=== PATIENT | female | born 1990 | race Two or more races ===

== ENCOUNTER 2020-09-28 18:26 | Emergency (ER) | payer MEDICAID ==
[~2020-09-28] VITALS: Ht 170.2 cm; Wt 71.0 kg
[2020-09-28] MEDS ORDERED: KETOROLAC 60MG/2ML VIAL IM ONE (18:45)
[2020-09-28] MEDS ORDERED: IBUP-2029 MT (21:07)
[2020-09-28 21:10] VITALS: BP 137/91
[2020-10-11] MEDS ORDERED: TAMS-11 MT ×2 (18:04)
[2020-10-11] MEDS ORDERED: ONDA4TAB5 MT ×2 (18:04)
== END 2020-09-28 21:10 | disposition home or self-care (01) ==
LOC: ER 18:26
DX: S60.221A Contusion of right hand, initial encounter (principal); X58.XXXA Exposure to other specified factors, initial encounter; Y93.89 Activity, other specified; Y92.89 Other specified places as the place of occurrence of the external cause; Y99.8 Other external cause status
CPT/HCPCS: 73130; 81025; 96372; 99283; J1885

== ENCOUNTER 2024-12-28 12:28 | Emergency (ER) | payer MEDICAID, OTHER ==
[~2024-12-28] VITALS: Ht 167.6 cm; Wt 83.0 kg
[~2024-12-28 12:28] MED LIST: IBUP-1455 MT
[2024-12-28 12:39] VITALS: TEMP 37.2; O2SAT 100
[2024-12-28] MEDS: IBUPROFEN 800MG TABLET PO ONE (14:41)
[2024-12-28] MEDS ORDERED: IBUP-2030 MT (14:57)
[2024-12-28] MEDS ORDERED: CYCL5TAB3 MT (14:57)
[2024-12-28 15:18] VITALS: BP 113/68; PULSE 61; RESP 12; O2SAT 98
== END 2024-12-28 15:02 | disposition home or self-care (01) ==
LOC: ER 12:28
DX: S20.219A Contusion of unspecified front wall of thorax, initial encounter (principal); Z91.010 Allergy to peanuts; Z98.890 Other specified postprocedural states; V89.2XXA Person injured in unspecified motor-vehicle accident, traffic, initial encounter; Y92.410 Unspecified street and highway as the place of occurrence of the external cause; Y93.89 Activity, other specified; Y99.8 Other external cause status
CPT/HCPCS: 71046; 99284